=== PATIENT | male | born 1995 | race Hispanic/Latino ===

== ENCOUNTER → 2018-10-16 | Outpatient (REF) | payer OTHER | LOC: M SFHCLERA 17:24 | PROVIDERS: ATTEND Nurse Practitioner Family | DX: J02.9 Acute pharyngitis, unspecified (principal) ==

== ENCOUNTER 2021-10-13 10:40 | Emergency (ER) | payer OTHER ==
[~2021-10-13] VITALS: Ht 175.3 cm; Wt 84.0 kg
[2021-10-13 10:40] VITALS: BP 137/63
== END 2021-10-13 14:44 | disposition home or self-care (01) ==
LOC: M ED 10:40
DX: K52.9 Noninfective gastroenteritis and colitis, unspecified (principal)